=== PATIENT | female | born 1970 | race Caucasian/White ===

== ENCOUNTER 2020-06-17 09:33 | Observation (INO) ==
[~2020-06-17 09:33] MED LIST: *HR* OxyCODONE ER (12 HR) 10 MG TABLET PO ONE; Acetaminophen IV 1,000 MG/100 ML BAG IVPB ONE; Bacitracin 50,000 UNIT, Polymyxin B Sulfate 500,000 UNIT, Sodium Chloride IRRigation 1,... IR ONE; Famotidine 20 MG/2 ML VIAL IVP ONE; Pregabalin 50 MG CAPSULE PO ONE; Scopolamine Patch 1.5 MG PATCH.TD72 TD ONE
[2020-06-17] MEDS ORDERED: CeFAZolin Syr 3,000MG/30 ML 3,000 MG/30 ML SYRINGE IVPB ONE (10:12)
[2020-06-17] MEDS: Ringers Solution, Lactated 1,000 ML IVC SCH ×2 (10:31→12:37)
[2020-06-17] MEDS ORDERED: Naloxone 0.4 MG/ML INJ IVP PRN (10:48)
[2020-06-17] MEDS ORDERED: Ondansetron 4 MG/2 ML VIAL IVP PRN (10:48)
[2020-06-17] MEDS ORDERED: Nitroglycerin 0.4 MG TAB.SUBL SL PRN (10:48)
[2020-06-17] MEDS ORDERED: Albuterol 2.5 MG/3 ML NEBULIZER IH PRN (10:48)
[2020-06-17] MEDS ORDERED: *HR* FentaNYL (PF) 100 MCG/2 ML VIAL IVP PRN (10:48)
[2020-06-17] MEDS ORDERED: *HR* HYDROmorphone PF 0.5 MG/0.5 ML SYRINGE IVP PRN (10:48)
[2020-06-17] MEDS ORDERED: *HR* Midazolam HCl 2 MG/2 ML VIAL ONE (10:56)
[2020-06-17] MEDS ORDERED: *HR* Remifentanil 1 MG VIAL IVP ONE ×2 (11:04→13:05)
[2020-06-17] MEDS ORDERED: Dexmedetomidine HCl 400 MCG/100 ML MLS IVC ONE (11:33)
[2020-06-17] MEDS ORDERED: Ketorolac 30 MG/ML VIAL ONE (13:55)
[2020-06-17] MEDS: *HR* OxyCODONE Immed Rel 5 MG TABLET PO PRN (20:18)
[2020-06-17] MEDS: Pregabalin 75 MG CAPSULE PO SCH (21:15)
[2020-06-17] MEDS: *HR* HYDROcodone/Acet 7.5/325 mg TABLET PO SCH (21:15)
[2020-06-17] MEDS: CeFAZolin 2 GM/120 ML BAG IVPB SCH (21:36)
[2020-06-18] MEDS: *HR* OxyCODONE Immed Rel 5 MG TABLET PO PRN ×6 (00:15→23:14)
[2020-06-18] MEDS: CeFAZolin 2 GM/120 ML BAG IVPB SCH (04:14)
[2020-06-18] MEDS: Pregabalin 75 MG CAPSULE PO SCH ×3 (08:47→21:05)
[2020-06-18] MEDS: *HR* HYDROcodone/Acet 7.5/325 mg TABLET PO SCH ×3 (08:48→21:05)
[2020-06-18] MEDS ORDERED: tiZANidine 4 MG TABLET PO PRN (13:26)
[2020-06-18] MEDS ORDERED: CeFAZolin Syr 3,000MG/30 ML 3,000 MG/30 ML SYRINGE IVPB SCH (22:55)
[2020-06-18] MEDS ORDERED: Naloxone 0.4 MG/ML INJ IVP PRN (22:55)
[2020-06-18] MEDS ORDERED: Ringers Solution, Lactated 1,000 ML IVC SCH (22:55)
[2020-06-18] MEDS ORDERED: Ondansetron 4 MG/2 ML VIAL IVP PRN (22:55)
[2020-06-18] MEDS ORDERED: *HR* HYDROcodone/Acet 7.5/325 mg TABLET PO PRN (22:55)
[2020-06-19] MEDS: *HR* OxyCODONE Immed Rel 5 MG TABLET PO PRN ×2 (03:34→08:03)
[2020-06-19] MEDS ORDERED: tiZANidine 4 MG TABLET PO PRN (05:52)
[2020-06-19] MEDS ORDERED: diazePAM 2 MG TABLET PO PRN (05:53)
[2020-06-19] MEDS ORDERED: Pregabalin 75 MG CAPSULE PO SCH (09:00)
[2020-06-19] MEDS ORDERED: Cholecalciferol (D-3) 1,000 UNIT (25MCG) TABLET PO SCH (09:00)
[2020-06-19 11:04] VITALS: BP 108/72
[2020-06-19 12:03] LABS: Adenovirus Not Detected (Not Detect); Coronavirus 229E Not Detected (Not Detect); Coronavirus HKU1 Not Detected (Not Detect); Coronavirus NL63 Not Detected (Not Detect); Coronavirus OC43 Not Detected (Not Detect)
[2020-06-19 12:04] LABS: Bordetella Pertussis Not Detected (Not Detect); Chlamydophila pneumoniae Not Detected (Not Detect); Human Metapneumovirus Not Detected (Not Detect); Human Rhinovirus/Enterovirus Not Detected (Not Detect); Influenza A Subtype 2009 H1 Not Detected (Not Detect); Influenza B Not Detected (Not Detect); Mycoplasma pneumoniae Not Detected (Not Detect); Parainfluenza Virus 1 Not Detected (Not Detect); Parainfluenza Virus 2 Not Detected (Not Detect); Parainfluenza Virus 3 Not Detected (Not Detect); Parainfluenza Virus 4 Not Detected (Not Detect); Respiratory Syncytial Virus Not Detected (Not Detect); SARS-CoV-2 Not Detected (Not Detect)
== END 2020-06-19 12:26 | disposition home or self-care (01) ==
LOC: 3NENU 09:33 → SAMDAY 09:33 → 3NENU 15:41
PROVIDERS: ADMIT Orthopaedic Surgery Orthopaedic Surgery of the Spine; ATTEND Orthopaedic Surgery Orthopaedic Surgery of the Spine